=== PATIENT | male | born 1990 | race Caucasian/White ===

== ENCOUNTER 2020-07-17 19:59 | Emergency (ER) | payer OTHER ==
[~2020-07-17 19:59] MED LIST: FLAGYL500 MG PO; LEVAQUIN750 MG PO
[2020-07-17 21:39] LABS: HEMOGLOBIN 14.6 gm/dl (14.0-17.5); RED BLOOD COUNT 4.63 M/UL (4.20-5.50); WHITE BLOOD COUNT 7.7 K/UL (4.5-11.0)
[2020-07-17 21:53] LABS: BUN/CREATININE RATIO 13 (0-10)
[2020-07-17] MEDS ORDERED: CYCLOBENZAPRINE10 MG PO (22:00)
[2020-07-17] MEDS ORDERED: IBUPROFEN800 MG PO (22:00)
== END 2020-07-17 22:23 | disposition home or self-care (01) ==
LOC: ER1 19:59
PROVIDERS: Emergency Medicine
DX: S29.011A Strain of muscle and tendon of front wall of thorax, initial encounter (principal); X50.0XXA Overexertion from strenuous movement or load, initial encounter; F17.210 Nicotine dependence, cigarettes, uncomplicated
CPT/HCPCS: 71045; 80053; 81001; 82550; 82553; 83690; 83874; 84484; 85025; 87086; 93005; 96374; 99285; J1885